=== PATIENT | female | born 2005 | race Caucasian/White ===

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

== ENCOUNTER 2023-06-02 08:38 | Emergency (ER) | payer OTHER ==
[~2023-06-02] VITALS: Ht 167.6 cm; Wt 72.6 kg
[2023-06-02 09:27] VITALS: BP 103/68; PULSE 89; RESP 18; TEMP 98; O2SAT 98
[2023-06-02] MEDS ORDERED: SODI1PKT7 NS (09:57)
[2023-06-02] MEDS ORDERED: LORA1T1237 PO (09:57)
[2023-06-02] MEDS ORDERED: NAPR-1704 PO (09:57)
[2023-06-02] MEDS ORDERED: AMOX-999 PO (09:57)
== END 2023-06-02 10:01 | disposition home or self-care (01) ==
LOC: MED 08:38
DX: J32.9 Chronic sinusitis, unspecified (principal); B34.9 Viral infection, unspecified; J45.909 Unspecified asthma, uncomplicated; Z79.899 Other long term (current) drug therapy
CPT/HCPCS: 99283